=== PATIENT | male | born 1990 | race Caucasian/White ===

== ENCOUNTER 2022-02-08 19:54 | Emergency (ER) | payer OTHER, SELFPAY ==
[2022-02-08 20:06] VITALS: BP 152/84; PULSE 77; RESP 20; TEMP 36.1; O2SAT 98; BMI 26.4
--- NOTE | 2022-02-08 20:55 | CRLHL7_ITS ---
For Patients: As a result of the Cures Act, medical imaging exams and procedure reports are released immediately into your electronic medical record. You may view this report before your referring provider. If you have questions, please contact your health care provider. Indication: Testicular pain. Technique: Ultrasound of the scrotum and contents. Sonographic butcher-scale images were obtained with spectral and color Doppler waveform and spectral waveform analysis of the testicles. Comparison: None. Findings: The right testicle measures 5.1 x 2.5 x 2.5 centimeters, the left testicle measures 5.2 x 3.0 x 2.9 centimeters. There is subtle heterogeneity noted throughout the left testicle with areas of hypo echogenicity when compared to the right testicle which appears predominantly homogeneous. Increased vascularity is identified in the left testicle compared to the right testicle. No suspicious masses or calcifications identified bilaterally. Epididymis: Heterogeneous appearance of the left epididymis with increased vascularity. The right epididymis is unremarkable. Other: Small left hydrocele is noted. Left-sided varicoceles identified. Scrotal wall is unremarkable. Impression: Left epididymo-orchitis. Dictated by Keyur Hyatt MD @ 02/08/2022 9:51:58 PM (Electronically Signed)
[2022-02-08 21:49] LABS: SARS PCR* Negative SARS-CoV-2 (Negative)
[2022-02-08 22:19] VITALS: BP 140/85; PULSE 67; RESP 18; TEMP 35.6; O2SAT 95
[2022-02-08 22:25] LABS: Basophils Absolute Auto 0.04 K/uL (0.00-0.30); Basophils Percent Auto 0.5 % (0.0-3.0); Eosinophils Absolute Auto 0.03 K/uL (0.00-0.50); Eosinophils Percent Auto 0.4 % (0.0-7.0); Hematocrit 40.5 % (37.0-53.0); Hemoglobin* 14.3 gm/dL (13.5-17.5); Immature Granulocytes Abs Auto 0.04 K/uL (0.00-0.30); Lymphocytes Absolute Auto 1.81 K/uL (0.90-2.90); Lymphocytes Percent Auto 21.8 % (20-44); Mean Corpuscular HGB Conc 35 gm/dL (32-36); Mean Corpuscular Hemoglobin 29 pg (26-34); Mean Corpuscular Volume 83 fL (80-100); Monocytes Percent Auto 12.2 % (0.0-11.0); Neutrophils Absolute Auto 5.38 K/uL (1.7-7.0); Neutrophils Percent Auto 64.6 % (42.0-72.0); Platelet Count* 177 K/uL (140-440); RDW Coefficient of Variation % 11.9 % (11.5-15.5); Red Blood Count 4.89 m/uL (4.30-5.90); White Blood Count* 8.31 K/uL (4.50-11.00)
[2022-02-08 22:27] LABS: Chloride* 100 mmol/L (96-114)
[2022-02-08 22:28] LABS: Potassium* 3.6 mmol/L (3.6-5.1); Sodium* 136 mmol/L (135-149)
[2022-02-08 22:30] LABS: Carbon Dioxide* 28 mmol/L (20-32); Est. Creatinine Clearance* 120.96; Estimated Glomerular Filt Rate 103 ml/min
--- NOTE | 2022-02-08 22:30 | ED.GENADULT ---
HPI - General Adult General Chief complaint: Groin Pain Stated complaint: POSSIBLE TESTICULAR TORSION Time Seen by Provider: 02/08/22 20:54 History of Present Illness HPI narrative: 31yo male patient without significant PMH presents to the ED with acute complaints of left-sided testicular/scrotal pain that began two days prior to presentation and has worsened after a brief improvement. The patient reports that he and his practice periods of abstinence. Patient reports he typically has some discomfort associated with these periods. Patient states that after he is able to ejaculate, he has significant relief. However, with this episode he only had brief improvement of discomfort before a significant return of pain. He has no pain with erection, ejaculations, or intercourse. The patient has had no fever, chills, or sweats. Patient has had no trauma or injury. The patient has no nausea, vomiting, or abdominal pain. Patient reports the pain is well localized to his left testicle. The patient called the primary care clinic and was advised to come to the emergency department for further evaluation and treatment. See nursing notes for additional details. Related Data Previous Rx's Medication Instructions Recorded sulfamethoxazole 800 1 tab PO BID #10 tabs 02/08/22 mg-trimethoprim 160 mg tablet (Bactrim DS) Allergies Allergy/AdvReac Type Severity Reaction Status Date / Time Penicillin Allergy Mild Unknown Uncoded 02/08/22 16:25 Review of Systems Const: Denies: fever, chills or fatigue Cardio: Denies: chest pain, palpitations or shortness of breath with exertion Resp: Denies: shortness of breath or cough GI: Denies: abdominal pain, nausea, vomiting, diarrhea or constipation : Reports: testicular pain; Denies: painful urination, urinary frequency, urinary urgency, testicular mass, scrotal swelling or difficulty urinating Musculo: Denies: back pain Neuro: Denies: difficulty communicating thoughts Endo: Denies: fatigue PFSH PFSH Surgical History (Updated 02/08/22 @ 16:25 by Esperanza Tavares) History of hernia repair Status post adenoidectomy Social History Smoking Status: Never smoker Do you use any of these nicotine containing products: None How often do you have a drink containing alcohol: never How many standard drinks containing alcohol do you have on a typical day: 1 or 2 How often do you have six or more drinks on one occasion: Never AUDIT-C Alcohol total score: 0 Non-prescribed substance use: denies use Exam Const: Vital Signs, click to edit/add: Vital Signs - 24 hr 02/08/22 20:06 02/08/22 22:19 Temperature 97.0 F L 96.0 F L Pulse Rate [Right Pulse Oximeter] 77 67 Respiratory Rate 20 18 Blood Pressure [Le ft Upper Arm] 152/84 H 140/85 H Pulse Oximetry 98 95 Oxygen Delivery Me thod Room Air Room Air Documenting provider has reviewed patient's vital signs: yes Common normals: no apparent distress, oriented x3, no limitations, healthy appearing, alert and well nourished General appearance: cooperative, comfortable and well developed; not in distress Orientation/consciousness: Yes awake, Yes oriented to person and Yes oriented to place HENMT: Common normals: normocephalic, head/scalp atraumatic and hearing grossly normal bilaterally Head and scalp: normocephalic and atraumatic Face and sinus: normal facial exam (within limits of masking) Eye: Common normals: EOMs intact bilaterally General eye: normal appearance of both eyes Resp: Common normals: normal respiratory effort, no retractions, no use of accessory muscles and clear to auscultation bilaterally Effort & inspection: able to speak in complete sentences Auscultation: clear to auscultation bilaterally Cardio: Common normals: regular rate, regular rhythm, S1 normal heart sound and S2 normal heart sound Rate: regular rate Rhythm: regular rhythm Heart sounds: S1 normal and S2 normal GI: Common normals: Normal to inspection, nondistended, normoactive bowel sounds present, soft to palpation and non-tender Palpation: soft Rectal Exam - Male: deferred : Common normals: no CVA tenderness, scrotum normal, no scrotal swelling and no hernias present Bladder/kidney exam: no CVA tenderness Testes: testicular tenderness Testicular tenderness laterality: left, epididymal induration Epididymal induration laterality: left and epididymal tenderness Back & Pelvis: Common normals: no CVA tenderness Extremity: Common normals: normal to inspection, full ROM and no clubbing, cyanosis or edema Neuro: Common normals: oriented x3, moves all extremities, no focal motor deficits and no sensory deficits noted Sensorium/orientation: awake, alert, oriented to person and oriented to place Gait (neuro): normal gait Motor exam: no movement abnormalities noted Psych: Common normals: mental status grossly normal, thought process normal and activity/motor behavior normal Appearance: grossly normal Thought process: normal thought process Thought content: normal thought content Attention/concentration: attention grossly intact Memory/cognition: memory grossly intact Insight: insight good Judgement: judgment good Skin: Common normals: no rashes or lesions noted General skin exam: no rashes or lesions noted Course Vital Signs Vital signs: Initial Vital Signs Temperature 97.0 F L 02/08/22 20:06 Temperature Source Temporal Artery Scan 02/08/22 20:06 Pulse Rate 77 02/08/22 20:06 Respiratory Rate 20 02/08/22 20:06 Blood Pressure 152/84 H 02/08/22 20:06 Blood Pressure Mean 106 02/08/22 20:06 Blood Pressure Position Sitting 02/08/22 20:06 Pulse Oximetry 98 02/08/22 20:06 Oxygen Delivery Method 02/08/22 20:06 Vital Signs Temperature 97.0 F L 02/08/22 20:06 Pulse Rate 77 02/08/22 20:06 Respiratory Rate 20 02/08/22 20:06 Blood Pressure 152/84 H 02/08/22 20:06 Pulse Oximetry 98 02/08/22 20:06 Oxygen Delivery Method 02/08/22 20:06 Temperature 96.0 F L 02/08/22 22:19 Pulse Rate 67 02/08/22 22:19 Respiratory Rate 18 02/08/22 22:19 Blood Pressure 140/85 H 02/08/22 22:19 Pulse Oximetry 95 02/08/22 22:19 Oxygen Delivery Method 02/08/22 22:19 Medical Decision Making MDM Narrative Medical decision making narrative: During the evaluation of this patient consider multiple differential diagnosis considerations. The life-threatening differential diagnoses considered include: Appendicitis, aortic aneurysm, mesenteric ischemia, bowel perforation, volvulus, and bowel obstruction. Other differential diagnoses include but are not limited to: Inflammatory bowel disease, cholecystitis, pancreatitis, hepatitis, gastritis, GERD, diverticulitis, peptic ulcer disease, pyelonephritis/UTI, renal colic/stone, diseases of the genitourinary system and reproductive system, as well as the other etiologies. Lab Data Labs: Lab Results 02/08/22 02/08/22 02/08/22 Range/Units 20:17 22:05 22:05 WBC 8.31 (4.50-11.00) K/uL RBC 4.89 (4.30-5.90) m/uL Hgb 14.3 (13.5-17.5) gm/dL Hct 40.5 (37.0-53.0) % MCV 83 (80-100) fL MCH 29 (26-34) pg MCHC 35 (32-36) gm/dL RDW Coeff of Malika 11.9 (11.5-15.5) % Plt Count 177 (140-440) K/uL Neut % (Auto) 64.6 (42.0-72.0) % Lymph % (Auto) 21.8 (20-44) % Cowley % (Auto) 12.2 H (0.0-11.0) % Eos % (Auto) 0.4 (0.0-7.0) % Baso % (Auto) 0.5 (0.0-3.0) % Neut # (Auto) 5.38 (1.7-7.0) K/uL Lymph # (Auto) 1.81 (0.90-2.90) K/uL Cowley # (Auto) 1.00 H (0.00-0.90) K/UL Eos # (Auto) 0.03 (0.00-0.50) K/uL Baso # (Auto) 0.04 (0.00-0.30) K/uL Abs Immat Gran (auto) 0.04 (0.00-0.30) K/uL Sodium 136 (135-149) mmol/L Potassium 3.6 (3.6-5.1) mmol/L Chloride 100 (96-114) mmol/L Carbon Dioxide 28 (20-32) mmol/L BUN 14 (5-24) mg/dL Creatinine 1.0 (0.5-1.5) mg/dL Estimated Creat Clear 120.96 Estimated GFR 103 ml/min Glucose 125 H (60-115) mg/dL Calcium 9.1 (8.4-10.6) mg/dL C.trachomatis Ampl DNA (No Detected) SARS-CoV-2 (PCR) Negative SARS-CoV-2 (Negative) N.gonorrhoeae Ampl DNA (No Detected) 02/08/22 Range/Units 22:10 WBC (4.50-11.00) K/uL RBC (4.30-5.90) m/uL Hgb (13.5-17.5) gm/dL Hct (37.0-53.0) % MCV (80-100) fL MCH (26-34) pg MCHC (32-36) gm/dL RDW Coeff of Malika (11.5-15.5) % Plt Count (140-440) K/uL Neut % (Auto) (42.0-72.0) % Lymph % (Auto) (20-44) % Cowley % (Auto) (0.0-11.0) % Eos % (Auto) (0.0-7.0) % Baso % (Auto) (0.0-3.0) % Neut # (Auto) (1.7-7.0) K/uL Lymph # (Auto) (0.90-2.90) K/uL Cowley # (Auto) (0.00-0.90) K/UL Eos # (Auto) (0.00-0.50) K/uL Baso # (Auto) (0.00-0.30) K/uL Abs Immat Gran (auto) (0.00-0.30) K/uL Sodium (135-149) mmol/L Potassium (3.6-5.1) mmol/L Chloride (96-114) mmol/L Carbon Dioxide (20-32) mmol/L BUN (5-24) mg/dL Creatinine (0.5-1.5) mg/dL Estimated Creat Clear Estimated GFR ml/min Glucose (60-115) mg/dL Calcium (8.4-10.6) mg/dL C.trachomatis Ampl DNA NOT DETECTED (No Detected) SARS-CoV-2 (PCR) (Negative) N.gonorrhoeae Ampl DNA NOT DETECTED (No Detected) Discharge Plan Discharge Clinical Impression: Orchitis and epididymitis, Left testicular pain Patient Disposition: Home, Self-Care Condition: Stable Instructions: Epididymo-Orchitis (ED) Additional Instructions: Thank you for choosing [facility]. We plan to treat with antibiotics. You should aggressively treat symptoms with: rest, increased fluids, and Ibuprofen and Tylenol as needed. You should eat and drink to ensure adequate intake. The patient is asked to return if developing fever, inability to eat or drink, decreased urine output, or other new/worsening symptoms develop. Additional discussion regarding the course of the illness, as well as helpful treatments, including use of a vaporizer/humidifier, steamed bathroom, or cool outdoor air. Arrange follow up visit if worsening or no improvement in symptoms in 1-2 weeks. The patient is asked to return if develops warning signs including fever >100.4, lethargy, failure to hydrate with PO intake, or decreased urine output. Your care today was on an emergency basis and is not intended to be a substitute for on-going care with your primary physician. I recommend calling primary care for follow-up in the next 5-7 days for follow-up as needed and to review any labs, testing, or imaging you have had in the Emergency Department. If new or worsening symptoms develop or you have any concerns in the meantime, please call your primary care clinic or return to the ER for re-evaluation. Activity Level: No Restrictions and Activity as Tolerated Discharge Diet: Regular Prescriptions: New sulfamethoxazole-trimethoprim [Bactrim DS] 800-160 mg tablet 1 tab PO BID Qty: 10 0RF Follow Up/Referrals: Wilder Valles MD [Primary Care Provider] - Stand Alone Forms: [employer] Info Instructions
[2022-02-08 22:31] LABS: Blood Urea Nitrogen* 14 mg/dL (5-24); Calcium* 9.1 mg/dL (8.4-10.6); Glucose* 125 mg/dL (60-115)
[2022-02-08 22:35] LABS: Slide Review Reflex No
[2022-02-08 23:56] LABS: Chlamydia DNA Amplified* NOT DETECTED (No Detected); GC DNA Amplified* NOT DETECTED (No Detected)
== END 2022-02-08 22:50 | disposition home or self-care (01) ==
PROVIDERS: Emergency Provider Family Medicine; PCP Family Medicine
DX: N45.3 Epididymo-orchitis (principal)
CPT/HCPCS: 36415; 76870; 80048; 85025; 87491; 87591; 87635; 93976; 99283; 99284; A9270